=== PATIENT | male | born 1955 | race Caucasian/White ===

== ENCOUNTER → 2020-01-19 | Day surgery (SDC) | payer BC, OTHER ==
[~2020-01-19] MED LIST: AMLODIPINE BESYL5 MG PO; AMLODIPINE-BEN1 EAC4 PO; FENTANYL CITRATE/PF 100MCG/2 ML INJ ONE; GLUCAGON FOR INJ 1 MG VIAL ONE; HYOSCYAMINE 0.125 MG TAB ONE; LEVOTHYROXINE112 MCG PO; LOTREL 5-20 MG1 EACH PO; MIDAZOLAM HCL 2 MG/2 ML VIAL ONE; PANTOPRAZOLE SO40 MG PO; PREVACID30 MG PO; PROPOFOL IV EMULSION 10 MG/ML 20 ML VIAL ONE; TRIBENZOR 40-51 EAC1 PO
[2020-01-19 18:00] VITALS: BP 103/67
--- NOTE | 2020-01-19 18:12 | Operative Report ---
DATE OF PROCEDURE: SURGEON: Milton Isaac MD PROCEDURE: Colonoscopy with polypectomy and biopsies. INDICATIONS FOR COLONOSCOPY: Screening colonoscopy, father with rectal cancer, personal history of colon polyps. MEDICATIONS: The patient was done under MAC. Please see anesthesiologist's note. PROCEDURE IN DETAIL: With the patient in left lateral decubitus position, a flexible fiberoptic Olympus colonoscope was inserted into the rectum with ease and advanced all the way to the cecum. A minute polyp was removed per cold biopsy forceps from the cecum. The scope was then withdrawn slowly. Mucosa overlying the ascending and the transverse grossly was within normal limits. There was some minimal scattered diverticular disease. An approximately 5 mm sessile polyp was removed per snare electrocautery from the descending colon. Also, some scattered diverticular disease was noted in the distal descending and the sigmoid colon. There were some patchy intense erythema and some moderate edema noted in the rectum, which was biopsied. The scope was then retroflexed into the distal rectum and moderate-sized internal hemorrhoids were noted, none of which was actively bleeding. The scope was then straightened out. It was subsequently withdrawn. The patient tolerated the procedure well. IMPRESSION: 1. Cecal polyp, cold biopsied. 2. Diverticulosis. 3. Descending colon polyp hot snared and site was hemoclipped x1, not mentioned in the body of the report. 4. Proctitis, mild, biopsied. 5. Internal hemorrhoids, none actively bleeding. PLAN: Follow up histology. Initiate hydrocortisone acetate suppositories 25 mg b.i.d. x10 days and p.r.n. The patient might benefit from a followup colonoscopy in 3 years. Milton Isaac MD [facility] [place][id number] cc: Javier Barnes DO
== END | disposition home or self-care (01) ==
LOC: OR 13:30
PROVIDERS: ATTEND Internal Medicine Gastroenterology
DX: K62.89 Other specified diseases of anus and rectum (principal); K63.5 Polyp of colon; K57.30 Diverticulosis of large intestine without perforation or abscess without bleeding; L29.0 Pruritus ani; K64.8 Other hemorrhoids; K29.70 Gastritis, unspecified, without bleeding; K20.9 Esophagitis, unspecified; K21.9 Gastro-esophageal reflux disease without esophagitis; I10 Essential (primary) hypertension; R00.1 Bradycardia, unspecified; Z88.0 Allergy status to penicillin; Z01.810 Encounter for preprocedural cardiovascular examination; Z01.812 Encounter for preprocedural laboratory examination; Z11.59 Encounter for screening for other viral diseases; Z68.28 Body mass index [BMI] 28.0-28.9, adult; Z80.0 Family history of malignant neoplasm of digestive organs
CPT/HCPCS: 45380; 45385; 93005; J1610; J2704; U0002; 45378; J2250; J3010

== ENCOUNTER → 2021-09-10 | Day surgery (SDC) | payer BC ==
[2021-09-09 10:31] LABS: BASOPHILS # (AUTO) 0.1 (0.0-0.1); BASOPHILS % 1.2 % (0.0-1.0); EOSINOPHILS # (AUTO) 0.4 (0.0-0.4); HEMATOCRIT 47.7 % (38.2-49.6); HEMOGLOBIN 15.8 g/dL (14.0-18.0); LYMPHOCYTES # (AUTO) 1.3 (1.0-3.2); LYMPHOCYTES % 21.7 % (18.0-39.1); MEAN CORPUSCULAR HEMOGLOBIN 29.2 pg (28-32); MEAN CORPUSCULAR HGB CONC 33.1 g/dL (31-35); MONOCYTES # (AUTO) 0.5 (0.2-0.8); MONOCYTES % 8.9 % (4.4-11.3); NEUTROPHILS # (AUTO) 3.4 (2.1-6.9); NEUTROPHILS % 57.4 % (38.7-80.0); PLATELET COUNT 176 x10e3/uL (140-360); RED BLOOD COUNT 5.42 x10e6/uL (4.3-5.7); RED CELL DISTRIBUTION WIDTH 13.2 % (11.7-14.4)
[~2021-09-10] MED LIST changes: -GLUCAGON FOR INJ 1 MG VIAL ONE; -HYOSCYAMINE 0.125 MG TAB ONE; +HYOSCYAMINE SULFATE 0.5 MG/ML INJ ONE; +LIDOCAINE HCL 2% LOCAL INJ 5 ML SDV VIAL INJ ONE; +METOCLOPRAMIDE HCL 10 MG/2ML VIAL ONE; +NAC600 MG PO; +POVIDONE IODINE 0.05% 0.05 % ML PO ONE; +VITAMIN C500 MG PO; +VITAMIN D3250 MC1 PO; +ZINC PO
[2021-09-10 16:02] VITALS: BP 110/88
== END | disposition home or self-care (01) ==
LOC: OR 11:55
PROVIDERS: ATTEND Internal Medicine Gastroenterology
DX: K22.70 Barrett's esophagus without dysplasia (principal); D12.4 Benign neoplasm of descending colon; K29.50 Unspecified chronic gastritis without bleeding; K20.90 Esophagitis, unspecified without bleeding; K21.9 Gastro-esophageal reflux disease without esophagitis; K44.9 Diaphragmatic hernia without obstruction or gangrene; K64.8 Other hemorrhoids; Z71.3 Dietary counseling and surveillance; E03.9 Hypothyroidism, unspecified; I10 Essential (primary) hypertension; Z88.0 Allergy status to penicillin; Z01.810 Encounter for preprocedural cardiovascular examination; Z01.812 Encounter for preprocedural laboratory examination; Z20.822 Contact with and (suspected) exposure to COVID-19; Z79.82 Long term (current) use of aspirin; Z79.899 Other long term (current) drug therapy; Z68.29 Body mass index [BMI] 29.0-29.9, adult; Z85.72 Personal history of non-Hodgkin lymphomas; Z80.0 Family history of malignant neoplasm of digestive organs
CPT/HCPCS: 36415; 43239; 45380; 85025; 93005; J1980; J2001; J2250; J2704; J2765; J3010; U0002; 45378